=== PATIENT | female | born 1955 | race Caucasian/White ===

== ENCOUNTER → 2018-06-08 | Outpatient (CLI) | payer OTHER ==
--- NOTE | 2018-06-10 01:41 | RT HOLTER TEST ---
FACILITY: [facility] - [place] PATIENT NAME: AMMY VORA : [id number] MR: [id number] V: [id number] EXAM DATE: ORDERING PHYSICIAN: KORINA ROBLES TECHNOLOGIST: Hook-up date: 2018-06-08 09:57:00 Duration: 24:24:00 Test Indications: Medications: [id number] QRS complexes 396 Ventricular ectopics which represent <1 % of total QRS comp. 29 Supraventricular ectopics which represent <1 % of total QRS comp. * Paced QRS complexes which represent % of total QRS comp. VENTRICULAR ECTOPY 394 Isolated 0 Bigeminal Cycles 1 Couplets 0 Runs 0 Beats in Runs * Beats LONGEST at * BPM at :: -- * Beats FASTEST at * BPM at :: -- SUPRAVENTRICULAR ECTOPY 26 Isolated 0 Couplets 1 Runs 3 Beats in Runs 3 Beats LONGEST at 128 BPM at 20:15:45 2018-06-08 3 Beats FASTEST at 128 BPM at 20:15:45 2018-06-08 HEART RATES 49 MIN at 04:26:00 2018-06-09 81 AVG 137 MAX at 16:51:33 2018-06-08 LONGEST RR 1.560 secs at 00:13:03 2018-06-09 S-T LEVELS Channel 1 -12.800 mm MIN at 09:57:00 2018-06-08 -12.800 mm MAX at 09:57:00 2018-06-08 Channel 2 -12.800 mm MIN at 09:57:00 2018-06-08 -12.800 mm MAX at 09:57:00 2018-06-08 Channel 3 -12.800 mm MIN at 09:57:00 2018-06-08 -12.800 mm MAX at 09:57:00 2018-06-08 The patient's one reported symptom event was a sinus tachycardia at 164 bpm. The patient had occasio nal ventricular ectopy and rare supraventricular ectopy. There was strip on 06/09/18 at 05:28:30 that shows a clear change in P wave morphology and th en subsequent rate of unclear significance (asymptomatic). Confirmed by DANIEL FALL ([id number]) on 06/10/2018 1:40:52 AM Referred By: Overread By: ADNIEL FALL
--- NOTE | 2018-06-10 12:28 | RT STRESS TEST REPORT ---
FACILITY: [facility] - [place] PATIENT NAME: AMMY VORA : [id number] MR: [id number] V: [id number] EXAM DATE: ORDERING PHYSICIAN: KORINA ROBLES TECHNOLOGIST: Mar Acquisition Time: 2018-06-08 09:01:02 Total Exercise Time: 00:06:49 Test Indications: Palpitations Medications: Protocol: BRUCE2 Max HR: 157 BPM 100% of Pred: 156 BPM Max BP: 190/068 mmHG Max Work Load: 8.2 METS Impression No EKG changes noted during the test to suggest ischemia No PVcs noted during the test Confirmed by NANDA MUKHERJEE ([id number]) on 06/10/2018 12:27:40 PM Referred By: Overread By: NANDA MUKHERJEE
== END ==
LOC: RESP 06:47
PROVIDERS: ATTEND Internal Medicine
DX: I49.3 Ventricular premature depolarization (principal)
CPT/HCPCS: 36415; 82310; 82374; 82435; 82565; 82947; 83735; 84132; 84295; 84520; 93017; 93225; 93226

== ENCOUNTER → 2018-06-10 | Outpatient (CLI) | payer OTHER | LOC: US 00:41 | PROVIDERS: ATTEND Internal Medicine | DX: Z13.6 Encounter for screening for cardiovascular disorders (principal); I07.1 Rheumatic tricuspid insufficiency | CPT/HCPCS: 93306 ==